=== PATIENT | female | born 1985 | race Caucasian/White ===

== ENCOUNTER → 2016-09-06 08:39 | Outpatient (CLI) | payer BC ==
[2014-06-11 09:45] VITALS: BMI 33.7
[~2016-09-06 08:39] MED LIST: CAMILA0.35 MG PO; IBUPROFEN600 MG PO; PAXIL20 MG PO; PERCOCET 5-3251 TAB PO; PRENATAL COMPLE1 TAB PO
== END | disposition home or self-care (01) ==
LOC: D.US 08:39
DX: T14.8 Other injury of unspecified body region (principal); R93.8 Abnormal findings on diagnostic imaging of other specified body structures

== ENCOUNTER 2016-09-09 09:19 | Outpatient (CLI) | payer BC ==
[~2016-09-09] VITALS: Ht 162.6 cm; Wt 71.8 kg
[~2016-09-09 09:19] MED LIST changes: -CAMILA0.35 MG PO; -PAXIL20 MG PO
[2016-09-09] MEDS ORDERED: CAMILA0.35 MG PO (11:03)
[2016-09-09] MEDS ORDERED: PAXIL20 MG PO (11:04)
[2016-09-09 11:13] VITALS: BP 134/94; Ht 162.6 cm; Wt 71.8 kg
[2016-09-09 11:45] LABS: BASOPHILS 0.4 % (0.0-2.0); EOSINOPHILS 0.7 % (0-7); IMMATURE GRANULOCYTES 0.4 % (0-5); LYMPHOCYTES 29.6 % (15-50); MCH 31.6 pg (26.0-34.0); MCHC 33.3 g/dL (31.0-37.0); MCV 94.8 fL (80.0-100.0); MEAN PLATELET VOLUME 9.4 fL (7.4-10.4); NEUTROPHILS 61.9 % (40-80); RBC 4.43 10x6/uL (4.00-5.40); RDW 12.8 % (11.5-14.5); WBC 8.1 10x3/uL (4.8-10.8)
[2016-09-09 11:46] LABS: PLATELET COUNT 261 10x3/uL (130-400)
[2016-09-09 11:50] LABS: CALC OSMOLALITY 278 mosm/kg (275-300); CALCIUM 9.7 mg/dL (8.5-10.1); CARBON DIOXIDE 23.7 mmol/L (21.0-32.0); CHLORIDE - SERUM 104 mmol/L (98-107); CREATININE - SERUM 0.6 mg/dL (0.6-1.3); GLUCOSE 96 mg/dL (74-106); POTASSIUM - SERUM 3.6 mmol/L (3.5-5.1); SODIUM 140 mmol/L (136-145); UREA NITROGEN 13 mg/dL (7-18); eGFR NON AFRICAN AMERICAN > 90 mL/min (90-120)
[2016-09-09 11:53] LABS: APTT 32.9 SECONDS (22.8-39.4); INR 0.99 (0.85-1.17)
--- NOTE | 2016-09-09 15:31 | NUR ---
1515-REPORTED OFF TO VIVIAN SONG RN, TRANSFER OF CARE AT THIS TIME.
--- NOTE | 2016-09-09 19:00 | NUR ---
1545 PAIN MED GIVEN 1620 DR FISH AND CAROL ANN IN ROOM TALKING WITH PT AND FAMILY 1645 IV DC WITH CATHER TIP INTACT
--- NOTE | 2016-09-09 19:04 | NUR ---
1600 VS TAKEN AND PLACED IN CHART ON POST OP SHEET
== END 2016-09-09 17:00 | disposition home or self-care (01) ==
LOC: D.OPS 09:19 → D.CT 11:00 → D.OPS 11:00 → D.CT 14:00 → D.OPS 17:00
PROVIDERS: General Practice
DX: N99.842 Postprocedural seroma of a genitourinary system organ or structure following a genitourinary system procedure (principal)

== ENCOUNTER → 2016-09-13 11:00 | Outpatient (CLI) | payer BC ==
--- NOTE | ~2016-09-13 | HEMODYNAMI ---
PATIENT:CHRISTINA LIZARRAGA MEDICAL RECORD: [id number] : 83 LOCATION:[facility] ADMISSION DATE: 09/13/16 Generatedon:09/16/201613:22 Patient name: CHRISTINA LIZARRAGA Patient #: [id number] SSN: D OB: 1985 Date of study: 09/16/2016 Page: Of Hemodynamic Procedure Report Patient Data Patient Demographics Procedure consent was obtained First Name: CHRISTINA Gender: Female Last Name: ZIA : 1985 Middle Initial: L Age: 31 year(s) Patient #: [id number] Race: Unknown Additional ID: [id number] Contact details Address: [address] [place] [address] [facility] State: [place] City: [facility] [place] [place] Zip code: [address] Admission Admission Data Admission Date: 09/13/2016 Admission Time: 11:00 Procedure Procedure Types Cath Procedure Peripheral Cath Diagnostic Procedure Abscess Abscess Drain Injection Procedure Description Procedure Date Procedure Date: 09/16/2016 Procedure Start Time: 13:01 Procedure End Time: 13:13 Procedure Staff Name Function Gilmer Nichols MD Performing Physician Yair Villafuerte RT Scrub Jacy Palma RN Nurse Isabel Sarkar RT Audit Consultant Isabel Sarkar RT Monitor Procedure Data Cath Procedure Fluoroscopy Diagnostic fluoroscopy Total fluoroscopy Time: 1 time: 1 min min Diagnostic fluoroscopy Total fluoroscopy dose: dose: 22.41 mGy 22.41 mGy Contrast Material Contrast Material Type Amount (ml) Isovue 300 15 Procedure Medications Medication Administration Route Dosage Oxygen NC 3 l/min Lidocaine 1% added to field 20 Heparin Flush Bag added to field 1 bags (1000units/500ml NS) Versed I.V. 2 mg Fentanyl I.V. 50 mcg Fentanyl I.V. 50 mcg Versed I.V. 2 mg Fentanyl I.V. 50 mcg Benadryl I.V. 50 mg Fentanyl I.V. 100 mcg Hemodynamics Rest Heart Rate: 97 (bpm) Snapshots Pre Cath Intra NCS Post Cath Vital Signs Time Heart Resp SPO2 NIBP (mmHg) Rhythm Pain Status Sedation Rate (ipm) (%) Level (bpm) 12:45:57 100 12 98 134/93(114) NSR 0 (11) , No 10(A) pain 12:47:33 100 18 97 137/118(128) NSR 0 (11) , No 10(A) pain 12:51:39 96 16 94 135/94(107) NSR 0 (11) , No 10(A) pain 12:55:45 95 13 96 141/94(128) NSR 0 (11) , No 10(A) pain 12:59:50 100 10 95 138/100(110) NSR 0 (11) , No 10(A) pain 13:03:56 90 12 95 145/106(127) NSR 0 (11) , No 10(A) pain 13:08:04 94 10 95 145/101(126) NSR 4 (11) , 10(A) Distressing 13:12:12 96 12 95 151/110(123) NSR 4 (11) , 10(A) Distressing 13:17:15 97 12 95 146/98(117) NSR 0 (11) , No 10(A) pain 13:21:23 102 12 95 141/103(120) NSR 0 (11) , No 10(A) pain Medications Time Medication Route Dose Verified Delivered Reason Notes Effe ctiveness by by 12:45:34 Heparin Flush added 1 Jacy Jacy used for Bag to bags Louie 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 50 mg Jacy Jacy for Louie STACEY Palma RN sedation 12:50:29 Fentanyl I.V. 100 Jacy Jacy for mcg Louie STACEY Palma RN sedation 13:00:45 Versed I.V. 2 mg Jacy Jacy for Louie STACEY Palma RN sedation 13:00:54 Fentanyl I.V. 50 Jacy Jacy for mcg Louie STACEY Palma RN sedation 13:07:06 Versed I.V. 2 mg Jacy Jacy for Louie STACEY Palma RN sedation 13:07:57 Fentanyl I.V. 50 Jacy Jacy for [facility] STACEY Palma RN sedation 13:12:10 Fentanyl I.V. 50 Jacy Jacy for [facility] STACEY Palma RN sedation Procedure Log Time Note 12:40:13 Yair Villafuerte RT (R) (CV) sent for patient. Start room use. 12:40:15 Time tracking: Regular hours 12:40:27 Plan of Care:Hemodynamics will remain stable., Cardiac rhythm will remain stable., Comfort level will be maintained., Respiratory function will remain adequate., Patient/ family verbilizes understanding of procedure., Procedure tolerated without complication., Recovers from procedure without complications.. 12:40:35 Patient received from Outpatients to IR Alert and oriented. Tansferred to table in Prone position. 12:41:02 Warm blankets applied, and wilder hugger turned on for patient comfort. 12:41:03 Correct patient and procedure confirmed by team. 12:41:06 Signed procedure consent form obtained from patient. 12:41:08 ECG and BP/O2 sat monitors applied to patient. 12:41:15 H&P Date Dictated: 09/16/2016 Within 30 days and on chart.. 12:41:17 Pre-procedure instructions explained to patient. 12:41:18 Pre-op teaching completed and patient verbalized understanding. 12:41:24 Family in waiting room. 12:41:26 Patient NPO since Midnight. 12:41:31 Is the patient allergic to Iodine/contrast media? No. 12:41:35 Patient diabetic? No. 12:41:52 HCG/Urine : negative 12:41:58 Previous problem with sedation/anesthesia? No ? 12:42:00 Snore? No 12:42:01 Sleep apnea? No 12:42:05 Deviated septum? No 12:42:06 Opens mouth fully? Yes 12:42:07 Sticks out tongue? Yes 12:42:10 Airway obstruction? No ? 12:42:15 Dentures? No ? 12:42:40 IV patent on arrival in left forearm with 0.9% NaCl at KVO. 12:42:58 Lab results completed and on chart. 12:44:02 Left buttox where drain is present was scrubbed with duraprep and draped in sterile fashion. 12:44:12 Alarms reviewed by R. N. 12:44:14 Sharps counted by scrub and verified by R.N. 12:45:34 Heparin Flush Bag (1000units/500ml NS) 1 bags added to field was given by Jacy Palma RN; used for procedure; 12:45:41 Oxygen 3 l/min NC was given by Jacy Palma RN; Per protocol; 12:45:58 Lidocaine 1% 20ml vial added to field was given by Jacy Palma RN; for local anesthetic; 12:46:35 Vital chart was started 12:46:40 Baseline sample Acquired. 12::46 Rhythm: sinus rhythm 12:46:49 Full Disclosure recording started 12:46:56 Physician paged 12:46:57 Physician responded to page. 12:50:19 Benadryl 50 mg I.V. was given by Jacy Palma RN; for sedation; 12:50:29 Fentanyl 100 mcg I.V. was given by Jacy Palma RN; for sedation; 12:57:09 Physician arrived 12:59:46 --------ALL STOP TIME OUT------ 12:59:50 Final Timeout: patient, procedure, and site verified with staff and physician. All members of the team are in agreement. 13:00:21 left buttox site verified by team 13:00:26 Physical assessment completed. ASA score P 2 - A patient with mild systemic disease as per Gilmer Nichols MD. 13:00:36 Sedation plan: IV Moderate Sedation Versed, Fentanyl 13:00:45 Versed 2 mg I.V. was given by Jacy Palma RN; for sedation; 13:00:54 Fentanyl 50 mcg I.V. was given by Jacy Palma RN; for sedation; 13:01:52 Procedure started. 13:04:44 Local anesthetic to left buttox by Dr. Nichols. 13:05:20 Contrast was injected into the existing tube. 13:07:06 Versed 2 mg I.V. was given by Jacy Palma RN; for sedation; 13:07:57 Fentanyl 50 mcg I.V. was given by Jacy Palma RN; for sedation; 13:08:37 Cook SHAWN .035 15CM guide wire opened to sterile field. 13:09:00 Shawn wire was introduced into the existing drain. 13:09:49 Wire and existing drain removed together. 13:10:06 Contrast amount:Isovue 300 15ml. 13:10:18 Procedure ended.(Physican Out) 13:10:46 Fluoroscopy time 01.00 minutes. 13:11:26 Fluoroscopy dose: 22.41 mGy 13:11:26 Flurop Dose total: 22.41 13:11:28 Sharps counted by scrub and verified by R.N. 13:11:56 4x4 and tegaderm placed on site. 13:12:01 Post procedure instruction explained to patient.Patient verbalizes understanding. 13:12:10 Fentanyl 50 mcg I.V. was given by Jacy Palma RN; for sedation; 13:13:05 Procedure and supply charges have been captured, reviewed, submitted and are correct. 13:13:07 See physician's report for complete and final results. 13:13:11 Report given to Outpatients. 13:13:17 Patient transfered to Outpatients with Bed. 13:13:32 Procedure ended. 13:13:32 Full Disclosure recording stopped 13:22:38 End room use (Document Last) 13:22:55 Vital chart was stopped Device Usage Item Manufacture Quantity Catalog Hospital Part Current Minimal Lot# / Name Number Charge Number Stock Stock Serial# Code [facility] 1 [id number] SHAWN .035 15CM guide wire Signature Audit Gering Stage Time Signature Unsigned Intra-Procedure 09/16/2016 Isabel Sarkar 1:22:53 PM RT(R) Signatures Monitor : Isabel Sarkar Signature : RT Date : Time : [facility] [address] [place] [address]
[~2016-09-13 11:00] MED LIST changes: +CAMILA0.35 MG PO; +PAXIL20 MG PO
[2016-09-16 11:05] VITALS: BMI 27.1
[2016-09-23 09:18] LABS: FUNGUS STAIN Final report (())
[2016-10-12 11:18] LABS: FUNGUS MYCOLOGY CULTURE Final report (())
== END | disposition home or self-care (01) ==
LOC: D.LABREF
PROVIDERS: General Practice
DX: N73.9 Female pelvic inflammatory disease, unspecified (principal)

== ENCOUNTER 2016-09-16 08:21 | Outpatient (CLI) | payer BC ==
[~2016-09-16] VITALS: Ht 162.6 cm; Wt 71.8 kg
[2016-09-16 11:05] VITALS: BP 143/86; Ht 162.6 cm; Wt 71.8 kg
[2016-09-16 11:55] LABS: BASOPHILS 0.2 % (0.0-2.0); EOSINOPHILS 0.8 % (0-7); HEMATOCRIT 42.7 % (36.0-48.0); HEMOGLOBIN 14.2 g/dL (12-16); IMMATURE GRANULOCYTES 0.5 % (0-5); LYMPHOCYTES 26.7 % (15-50); MCH 31.7 pg (26.0-34.0); MCHC 33.3 g/dL (31.0-37.0); MCV 95.3 fL (80.0-100.0); MEAN PLATELET VOLUME 9.5 fL (7.4-10.4); MONOCYTES 6.3 % (2-11); NEUTROPHILS 65.5 % (40-80); PLATELET COUNT 275 10x3/uL (130-400); RBC 4.48 10x6/uL (4.00-5.40); RDW 12.8 % (11.5-14.5); WBC 9.6 10x3/uL (4.8-10.8)
[2016-09-16 12:03] LABS: INR 1.27 (0.85-1.17); PROTIME 15.8 SECONDS (11.6-15.0)
[2016-09-16 12:04] LABS: APTT 50.1 SECONDS (22.8-39.4); CALC OSMOLALITY 279 mosm/kg (275-300); CALCIUM 8.9 mg/dL (8.5-10.1); CARBON DIOXIDE 26.8 mmol/L (21.0-32.0); CHLORIDE - SERUM 104 mmol/L (98-107); CREATININE - SERUM 0.6 mg/dL (0.6-1.3); GLUCOSE 85 mg/dL (74-106); POTASSIUM - SERUM 4.4 mmol/L (3.5-5.1); SODIUM 141 mmol/L (136-145); UREA NITROGEN 13 mg/dL (7-18); eGFR NON AFRICAN AMERICAN > 90 mL/min (90-120)
--- NOTE | 2016-09-16 15:05 | NUR ---
DISCHARGE INSTRUCTIONS GIVEN, VOICED UNDERSTANDING. STATES PAIN LEVEL IS NOW A "2". DISCHARGED HOME VIA WC.
--- NOTE | 2016-09-16 16:21 | NUR ---
SEE POST PROCEDURE VITAL SIGN SHEET FOR VITAL SIGNS.
== END 2016-09-16 15:05 | disposition home or self-care (01) ==
LOC: D.CT 08:21 → D.OPS 08:21 → D.CT 09:30 → D.RAD 11:00 → D.OPS 15:05
PROVIDERS: Radiology Diagnostic Radiology
DX: N99.840 Postprocedural hematoma of a genitourinary system organ or structure following a genitourinary system procedure (principal); R50.82 Postprocedural fever; N76.0 Acute vaginitis

== ENCOUNTER 2018-08-23 14:31 | Emergency (ER) | payer BC ==
[~2018-08-23] VITALS: Ht 162.6 cm; Wt 75.9 kg
[2018-08-23 14:37] VITALS: Ht 162.6 cm; Wt 75.9 kg
[2018-08-23] MEDS ORDERED: LITHOBID 300 M300 MG PO (14:40)
[2018-08-23] MEDS ORDERED: PROZAC20 MG PO (14:41)
[2018-08-23] MEDS ORDERED: MACROBID100 MG PO (14:41)
[2018-08-23] MEDS ORDERED: ZOFRAN4 MG PO (14:42)
[2018-08-23 15:22] LABS: BASOPHILS 0.2 % (0-2); EOSINOPHILS 0.1 % (0-7); HEMATOCRIT 43.6 % (36.0-48.0); HEMOGLOBIN 14.7 g/dL (12-16); IMMATURE GRANULOCYTES 0.6 % (0-5); LYMPHOCYTES 20.9 % (15-50); MCH 31.6 pg (26.0-34.0); MCHC 33.7 g/dL (31.0-37.0); MCV 93.8 fL (80.0-100.0); MEAN PLATELET VOLUME 9.5 fL (7.4-10.4); MONOCYTES 5.7 % (2-11); NEUTROPHILS 72.5 % (40-80); PLATELET COUNT 265 10x3/uL (130-400); RBC 4.65 10x6/uL (4.00-5.40); RDW 12.8 % (11.5-14.5); WBC 8.8 10x3/uL (4.8-10.8)
[2018-08-23 15:28] LABS: APPEARANCE CLEAR (CLEAR); BILIRUBIN NEGATIVE (NEGATIVE); COLOR YELLOW (YELLOW); GLUCOSE NEGATIVE (NEGATIVE); KETONE NEGATIVE (NEGATIVE); NITRITE NEGATIVE (NEGATIVE); PROTEIN NEGATIVE (NEGATIVE); SPECIFIC GRAVITY 1.015 (1.005-1.020); UROBILINOGEN NORMAL (NORMAL)
[2018-08-23 15:35] LABS: ALBUMIN 4.5 g/dL (3.4-5.0); ALKALINE PHOSPHATASE 59 U/L (46-116); ALT (SGPT) 17 U/L (10-68); BILIRUBIN - TOTAL 0.23 mg/dL (0.2-1.3); CALC OSMOLALITY 278 mosm/kg (275-300); CALCIUM 9.6 mg/dL (8.5-10.1); CHLORIDE - SERUM 104 mmol/L (98-107); CREATININE - SERUM 0.7 mg/dL (0.6-1.3); GLUCOSE 89 mg/dL (74-106); LIPASE 86 U/L (73-393); POTASSIUM - SERUM 3.7 mmol/L (3.5-5.1); PROTEIN - SERUM 8.2 g/dL (6.4-8.2); SODIUM 141 mmol/L (136-145); UREA NITROGEN 10 mg/dL (7-18); eGFR NON AFRICAN AMERICAN > 90 mL/min (90-120)
[2018-08-23] MEDS ORDERED: MILK OF MAGNESI30 ML PO (15:43)
[2018-08-23] MEDS ORDERED: COLACE100 MG PO (15:43)
[2018-08-23 16:55] LABS: UDS - AMPHET NEGATIVE QUAL (NEGATIVE); UDS - BARB NEGATIVE QUAL (NEGATIVE); UDS - BENZO NEGATIVE QUAL (NEGATIVE); UDS - COCAINE NEGATIVE QUAL (NEGATIVE); UDS - OPIATE NEGATIVE QUAL (NEGATIVE); UDS - PCP NEGATIVE QUAL (NEGATIVE); UDS - THC NEGATIVE QUAL (NEGATIVE)
[2018-08-23 18:00] VITALS: BP 167/117
== END 2018-08-23 18:00 | disposition home or self-care (01) ==
LOC: D.ER 14:31
PROVIDERS: Family Medicine
DX: G89.18 Other acute postprocedural pain (principal); R00.0 Tachycardia, unspecified; I10 Essential (primary) hypertension; R50.9 Fever, unspecified; R10.30 Lower abdominal pain, unspecified